=== PATIENT | male | born 1970 | race Caucasian/White ===

== ENCOUNTER 2021-06-02 14:12 | Inpatient (IN) | payer BC ==
[~2021-06-02] VITALS: Ht 182.9 cm; Wt 135.2 kg
[~2021-06-02 14:12] MED LIST: MICARDIS 40MG40 MG PO
[2021-06-02 15:19] LABS: BASO % 0.1 % (0.0-2.0); GRAN # 5.8 K/mm3 (1.4-6.5); GRAN % 87.3 % (42.2-75.2); HEMOGLOBIN 14.1 g/dl (13.5-18.0); LYMPH # 0.6 K/mm3 (1.2-3.4); LYMPH % 8.4 % (20.0-51.0); MEAN CELL VOLUME 81 fl (80.0-100.0); MEAN CORPUSCULAR HEMOGLOBIN 29 pg (27-31); MEAN CORPUSCULAR HGB CONC 35 g/dl (33.0-37.0); MEAN PLATELET VOLUME 9.6 fl (7.4-10.4); MONO # 0.2 K/mm3 (0.1-0.6); MONO % 3.3 % (1.7-9.3); PLATELET COUNT 148 K/mm3 (130-400); RED BLOOD COUNT 4.95 M/mm3 (4.20-5.60); REDCELL DISTRIBUTION WIDTH-CV 14.8 % (11.5-14.5)
[2021-06-02 15:36] LABS: ALBUMIN 3.2 gm/dL (3.5-5.0); BILIRUBIN,TOTAL 0.6 mg/dL (0.2-1.2); C-REACTIVE PROTEIN 15.79 mg/dL (0.00-0.50); CALCIUM 8.8 mg/dL (8.4-10.2); CREATININE, serum 0.87 mg/dL (0.72-1.25); POTASSIUM 4.6 mmol/L (3.5-4.5); TOTAL PROTEIN 7.2 gm/dL (6.2-8.1)
[2021-06-02 15:45] LABS: TROPONIN-I 0.019 ng/mL (0.00-0.033)
[2021-06-02 15:55] LABS: ARTERIAL BLD GAS O2 SATURATION 95.6 % (92-100); ARTERIAL BLD GAS TCO2 CT 19.5; ARTERIAL BLOOD GAS BASE EXCESS -5.3 (-2-2); ARTERIAL BLOOD GAS HCO3 18.6 meq/L (22-26); ARTERIAL BLOOD GAS PCO2 31.6 mmHg (35-45); ARTERIAL BLOOD GAS PO2 76.4 mmHg (80-100); ARTERIAL BLOOD GAS pH 7.39 (7.35-7.45)
[2021-06-02] MEDS ORDERED: ZESTRIL 20MG TA20 MG PO (17:58)
[2021-06-02] MEDS ORDERED: MULTI VITAMINS1 TAB PO (17:59)
[2021-06-02 19:43] VITALS: BP 143/87; PULSE 106; TEMP 98.4
[2021-06-03 00:24] VITALS: BP 133/83; PULSE 97; TEMP 97.6
[2021-06-03 03:39] VITALS: BP 135/88; PULSE 102; TEMP 97.4
[2021-06-03 07:33] LABS: BASO % 0.1 % (0.0-2.0); GRAN # 6.3 K/mm3 (1.4-6.5); GRAN % 86.9 % (42.2-75.2); HEMATOCRIT 40.8 % (42.0-52.0); HEMOGLOBIN 14.3 g/dl (13.5-18.0); LYMPH # 0.6 K/mm3 (1.2-3.4); LYMPH % 7.9 % (20.0-51.0); MEAN CELL VOLUME 82 fl (80.0-100.0); MEAN CORPUSCULAR HEMOGLOBIN 29 pg (27-31); MEAN CORPUSCULAR HGB CONC 35 g/dl (33.0-37.0); MEAN PLATELET VOLUME 9.8 fl (7.4-10.4); MONO # 0.3 K/mm3 (0.1-0.6); PLATELET COUNT 173 K/mm3 (130-400); RED BLOOD COUNT 4.99 M/mm3 (4.20-5.60); REDCELL DISTRIBUTION WIDTH-CV 14.9 % (11.5-14.5)
[2021-06-03 07:59] LABS: CREATININE, serum 0.78 mg/dL (0.72-1.25); POTASSIUM 4.8 mmol/L (3.5-4.5)
[2021-06-03 09:35] VITALS: BP 143/79; PULSE 102; TEMP 98
[2021-06-03 09:41] LABS: BILIRUBIN,DIRECT 0.3 mg/dL (0.0-0.5); BILIRUBIN,TOTAL 0.6 mg/dL (0.2-1.2)
[2021-06-03 11:26] VITALS: BP 137/77; PULSE 106; TEMP 97.5
[2021-06-03 16:55] VITALS: BP 140/86; PULSE 95; TEMP 97.7
[2021-06-03 20:43] VITALS: BP 139/84; PULSE 100; TEMP 98
[2021-06-04] VITALS (7 sets, daily range): BP systolic 114–171; BP diastolic 58–99; PULSE 80–105; TEMP 97.6–98.5
[2021-06-04 07:56] LABS: HEMATOCRIT 40.6 % (42.0-52.0); HEMOGLOBIN 14.3 g/dl (13.5-18.0); MEAN CELL VOLUME 82 fl (80.0-100.0); MEAN CORPUSCULAR HEMOGLOBIN 29 pg (27-31); MEAN CORPUSCULAR HGB CONC 35 g/dl (33.0-37.0); MEAN PLATELET VOLUME 9.8 fl (7.4-10.4); PLATELET COUNT 198 K/mm3 (130-400); RED BLOOD COUNT 4.98 M/mm3 (4.20-5.60); REDCELL DISTRIBUTION WIDTH-CV 14.7 % (11.5-14.5)
[2021-06-04 08:19] LABS: ALBUMIN 2.8 gm/dL (3.5-5.0); BILIRUBIN,DIRECT 0.3 mg/dL (0.0-0.5); BILIRUBIN,TOTAL 0.8 mg/dL (0.2-1.2); CREATININE, serum 0.83 mg/dL (0.72-1.25); POTASSIUM 4.9 mmol/L (3.5-4.5); TOTAL PROTEIN 6.7 gm/dL (6.2-8.1)
[2021-06-04 09:24] LABS: BAND 4 % (0-10); LYMPHOCYTE 12 % (20.0-51.0); NEUTROPHILS 83 % (42.0-75.2); PLATELET ESTIMATE NORMAL (NORMAL)
[2021-06-04 09:25] LABS: ANISOCYTOSIS 1+; MICROCYTOSIS 1+
[2021-06-05] VITALS (236 sets, daily range): BP systolic 130–157; BP diastolic 69–98; PULSE 86–99; TEMP 98.2–98.8; O2SAT 85–100
[2021-06-05 07:04] LABS: HEMOGLOBIN 14.5 g/dl (13.5-18.0); MEAN CELL VOLUME 81 fl (80.0-100.0); MEAN CORPUSCULAR HEMOGLOBIN 29 pg (27-31); MEAN CORPUSCULAR HGB CONC 35 g/dl (33.0-37.0); MEAN PLATELET VOLUME 9.5 fl (7.4-10.4); PLATELET COUNT 216 K/mm3 (130-400); RED BLOOD COUNT 5.07 M/mm3 (4.20-5.60); REDCELL DISTRIBUTION WIDTH-CV 14.5 % (11.5-14.5)
[2021-06-05 07:32] LABS: CALCIUM 8.9 mg/dL (8.4-10.2); CREATININE, serum 0.82 mg/dL (0.72-1.25); POTASSIUM 4.6 mmol/L (3.5-4.5)
[2021-06-05 08:44] LABS: BAND 4 % (0-10); LYMPHOCYTE 15 % (20.0-51.0); NEUTROPHILS 79 % (42.0-75.2); PLATELET ESTIMATE NORMAL (NORMAL)
[2021-06-05 13:34] LABS: ARTERIAL BLD GAS TCO2 CT 24.2; ARTERIAL BLOOD GAS BASE EXCESS -0.2 (-2-2); ARTERIAL BLOOD GAS HCO3 23.2 meq/L (22-26); ARTERIAL BLOOD GAS PCO2 34.4 mmHg (35-45); ARTERIAL BLOOD GAS PO2 69.6 mmHg (80-100); ARTERIAL BLOOD GAS pH 7.45 (7.35-7.45)
[2021-06-06] VITALS (687 sets, daily range): BP systolic 112–161; BP diastolic 73–102; PULSE 74–105; TEMP 97.5–99.2; O2SAT 72–100
[2021-06-06 04:29] LABS: ARTERIAL BLD GAS O2 SATURATION 96.1 % (92-100); ARTERIAL BLD GAS TCO2 CT 25.7; ARTERIAL BLOOD GAS BASE EXCESS -0.1 (-2-2); ARTERIAL BLOOD GAS HCO3 24.5 meq/L (22-26); ARTERIAL BLOOD GAS PCO2 39.8 mmHg (35-45); ARTERIAL BLOOD GAS pH 7.41 (7.35-7.45)
[2021-06-06 05:59] LABS: HEMATOCRIT 41.8 % (42.0-52.0); HEMOGLOBIN 14.9 g/dl (13.5-18.0); MEAN CELL VOLUME 81 fl (80.0-100.0); MEAN CORPUSCULAR HEMOGLOBIN 29 pg (27-31); MEAN CORPUSCULAR HGB CONC 36 g/dl (33.0-37.0); MEAN PLATELET VOLUME 9.3 fl (7.4-10.4); PLATELET COUNT 251 K/mm3 (130-400); RED BLOOD COUNT 5.16 M/mm3 (4.20-5.60); REDCELL DISTRIBUTION WIDTH-CV 14.6 % (11.5-14.5)
[2021-06-06 06:23] LABS: CALCIUM 8.9 mg/dL (8.4-10.2); CREATININE, serum 0.85 mg/dL (0.72-1.25); MAGNESIUM 1.9 mg/dL (1.6-2.6); POTASSIUM 4.5 mmol/L (3.5-4.5)
[2021-06-06 06:55] LABS: BAND 3 % (0-10); LYMPHOCYTE 9 % (20.0-51.0); METAMYELOCYTE 5 % (0-0); NEUTROPHILS 80 % (42.0-75.2); PLATELET ESTIMATE NORMAL (NORMAL)
[2021-06-07] VITALS (702 sets, daily range): BP systolic 134–152; BP diastolic 84–93; PULSE 79–98; TEMP 97.5–98.8; O2SAT 78–100
[2021-06-07 04:49] LABS: HEMATOCRIT 39.4 % (42.0-52.0); HEMOGLOBIN 13.2 g/dl (13.5-18.0); MEAN CELL VOLUME 85 fl (80.0-100.0); MEAN CORPUSCULAR HEMOGLOBIN 28 pg (27-31); MEAN CORPUSCULAR HGB CONC 34 g/dl (33.0-37.0); MEAN PLATELET VOLUME 9.4 fl (7.4-10.4); PLATELET COUNT 222 K/mm3 (130-400); RED BLOOD COUNT 4.64 M/mm3 (4.20-5.60); REDCELL DISTRIBUTION WIDTH-CV 14.6 % (11.5-14.5)
[2021-06-07 05:04] LABS: CALCIUM 8.1 mg/dL (8.4-10.2); CREATININE, serum 0.85 mg/dL (0.72-1.25); POTASSIUM 4.3 mmol/L (3.5-4.5)
[2021-06-07 06:54] LABS: EOSINOPHIL 5 % (0-4); LYMPHOCYTE 12 % (20.0-51.0); METAMYELOCYTE 8 % (0-0); NEUTROPHILS 70 % (42.0-75.2); PLATELET ESTIMATE NORMAL (NORMAL)
[2021-06-07 11:53] LABS: ALBUMIN 2.6 gm/dL (3.5-5.0); BILIRUBIN,DIRECT 0.3 mg/dL (0.0-0.5); BILIRUBIN,TOTAL 0.7 mg/dL (0.2-1.2)
[2021-06-07 14:43] LABS: ARTERIAL BLD GAS O2 SATURATION 93.4 % (92-100); ARTERIAL BLD GAS TCO2 CT 18.3; ARTERIAL BLOOD GAS BASE EXCESS -5.1 (-2-2); ARTERIAL BLOOD GAS HCO3 17.4 meq/L (22-26); ARTERIAL BLOOD GAS PCO2 26.7 mmHg (35-45); ARTERIAL BLOOD GAS pH 7.43 (7.35-7.45)
[2021-06-08] VITALS (402 sets, daily range): BP systolic 116–156; BP diastolic 57–93; PULSE 82–92; TEMP 97.5–98.5; O2SAT 80–100
[2021-06-08 04:34] LABS: ARTERIAL BLD GAS TCO2 CT 21.5; ARTERIAL BLOOD GAS BASE EXCESS -3.5 (-2-2); ARTERIAL BLOOD GAS HCO3 20.5 meq/L (22-26); ARTERIAL BLOOD GAS PCO2 34.3 mmHg (35-45); ARTERIAL BLOOD GAS PO2 87.8 mmHg (80-100); ARTERIAL BLOOD GAS pH 7.39 (7.35-7.45)
[2021-06-08 04:38] LABS: HEMATOCRIT 41.7 % (42.0-52.0); HEMOGLOBIN 14.8 g/dl (13.5-18.0); MEAN CELL VOLUME 81 fl (80.0-100.0); MEAN CORPUSCULAR HEMOGLOBIN 29 pg (27-31); MEAN CORPUSCULAR HGB CONC 36 g/dl (33.0-37.0); MEAN PLATELET VOLUME 9.8 fl (7.4-10.4); PLATELET COUNT 263 K/mm3 (130-400); RED BLOOD COUNT 5.15 M/mm3 (4.20-5.60); REDCELL DISTRIBUTION WIDTH-CV 14.4 % (11.5-14.5)
[2021-06-08 04:55] LABS: CALCIUM 8.9 mg/dL (8.4-10.2); CREATININE, serum 0.88 mg/dL (0.72-1.25); POTASSIUM 4.6 mmol/L (3.5-4.5)
[2021-06-08 05:28] LABS: BAND 3 % (0-10); EOSINOPHIL 4 % (0-4); LYMPHOCYTE 12 % (20.0-51.0); METAMYELOCYTE 1 % (0-0); NEUTROPHILS 75 % (42.0-75.2)
[2021-06-08 05:29] LABS: ANISOCYTOSIS 1+
[2021-06-09] VITALS: BP 133/94; PULSE 80; TEMP 98.7
[2021-06-09 04:00] VITALS: BP 130/89; PULSE 84; TEMP 97.9
[2021-06-09 05:08] LABS: ARTERIAL BLD GAS TCO2 CT 23.4; ARTERIAL BLOOD GAS BASE EXCESS -2.2 (-2-2); ARTERIAL BLOOD GAS HCO3 22.2 meq/L (22-26); ARTERIAL BLOOD GAS PCO2 37.2 mmHg (35-45); ARTERIAL BLOOD GAS PO2 56.7 mmHg (80-100); ARTERIAL BLOOD GAS pH 7.39 (7.35-7.45)
[2021-06-09 05:46] LABS: HEMATOCRIT 42.6 % (42.0-52.0); HEMOGLOBIN 15.1 g/dl (13.5-18.0); MEAN CELL VOLUME 81 fl (80.0-100.0); MEAN CORPUSCULAR HEMOGLOBIN 29 pg (27-31); MEAN CORPUSCULAR HGB CONC 35 g/dl (33.0-37.0); MEAN PLATELET VOLUME 10.1 fl (7.4-10.4); PLATELET COUNT 300 K/mm3 (130-400); RED BLOOD COUNT 5.24 M/mm3 (4.20-5.60); REDCELL DISTRIBUTION WIDTH-CV 14.6 % (11.5-14.5)
[2021-06-09 06:08] LABS: ALBUMIN 3.1 gm/dL (3.5-5.0); BILIRUBIN,TOTAL 0.8 mg/dL (0.2-1.2); C-REACTIVE PROTEIN 0.51 mg/dL (0.00-0.50); CREATININE, serum 0.91 mg/dL (0.72-1.25); POTASSIUM 4.4 mmol/L (3.5-4.5); TOTAL PROTEIN 6.8 gm/dL (6.2-8.1)
[2021-06-09 07:29] LABS: BAND 10 % (0-10); EOSINOPHIL 4 % (0-4); LYMPHOCYTE 16 % (20.0-51.0); METAMYELOCYTE 2 % (0-0); NEUTROPHILS 63 % (42.0-75.2); PLATELET ESTIMATE NORMAL (NORMAL); TEAR DROP CELLS 1+
[2021-06-09 08:00] VITALS: BP 129/83; PULSE 79; TEMP 96.5
[2021-06-09 11:30] VITALS: BP 133/102; PULSE 80; TEMP 97.6
[2021-06-09 16:41] VITALS: BP 126/77; PULSE 89; TEMP 97.6
[2021-06-09 20:34] VITALS: BP 108/73; PULSE 96; TEMP 98
[2021-06-10 00:28] VITALS: BP 117/81; PULSE 79; TEMP 98.3
[2021-06-10 03:46] VITALS: BP 129/71; PULSE 78; TEMP 98.3
[2021-06-10 08:16] VITALS: BP 105/63; PULSE 88; TEMP 97.9
[2021-06-10 11:34] VITALS: BP 121/77; PULSE 96; TEMP 97.8
[2021-06-10 15:53] VITALS: BP 121/71; PULSE 106; TEMP 98.7
[2021-06-10 20:31] VITALS: BP 149/88; PULSE 113; TEMP 98.2
[2021-06-11] VITALS (7 sets, daily range): BP systolic 121–138; BP diastolic 69–86; PULSE 74–101; TEMP 94.8–98.1
[2021-06-11 12:38] LABS: BASO % 0.5 % (0.0-2.0); EOS # 0.1 K/mm3 (0.0-0.7); EOS % 1.6 % (0.0-4.0); GRAN # 6.1 K/mm3 (1.4-6.5); GRAN % 77.1 % (42.2-75.2); HEMATOCRIT 40.8 % (42.0-52.0); HEMOGLOBIN 14.7 g/dl (13.5-18.0); LYMPH # 0.7 K/mm3 (1.2-3.4); LYMPH % 9.1 % (20.0-51.0); MEAN CELL VOLUME 81 fl (80.0-100.0); MEAN CORPUSCULAR HEMOGLOBIN 29 pg (27-31); MEAN CORPUSCULAR HGB CONC 36 g/dl (33.0-37.0); MONO # 0.5 K/mm3 (0.1-0.6); PLATELET COUNT 231 K/mm3 (130-400); RED BLOOD COUNT 5.04 M/mm3 (4.20-5.60); REDCELL DISTRIBUTION WIDTH-CV 14.5 % (11.5-14.5)
[2021-06-11 12:49] LABS: ALBUMIN 3.4 gm/dL (3.5-5.0); BILIRUBIN,TOTAL 0.7 mg/dL (0.2-1.2); C-REACTIVE PROTEIN 0.18 mg/dL (0.00-0.50); CALCIUM 8.9 mg/dL (8.4-10.2); CREATININE, serum 1.02 mg/dL (0.72-1.25); POTASSIUM 4.6 mmol/L (3.5-4.5); TOTAL PROTEIN 6.7 gm/dL (6.2-8.1)
[2021-06-12 04:27] VITALS: BP 116/67; PULSE 60; TEMP 98.2
[2021-06-12 07:44] VITALS: BP 121/76; PULSE 78; TEMP 97.5
[2021-06-12 11:49] VITALS: BP 96/64; PULSE 88; TEMP 98.3
[2021-06-12 16:11] VITALS: BP 115/66; PULSE 94; TEMP 98.2
[2021-06-12 20:51] VITALS: BP 127/69; PULSE 92; TEMP 98.1
[2021-06-12 23:56] VITALS: BP 128/76; PULSE 82; TEMP 98.1
[2021-06-13 04:23] VITALS: BP 127/73; PULSE 81; TEMP 98.2
[2021-06-13 07:12] LABS: HEMATOCRIT 37.7 % (42.0-52.0); HEMOGLOBIN 13.1 g/dl (13.5-18.0); MEAN CELL VOLUME 83 fl (80.0-100.0); MEAN CORPUSCULAR HEMOGLOBIN 29 pg (27-31); MEAN CORPUSCULAR HGB CONC 35 g/dl (33.0-37.0); MEAN PLATELET VOLUME 10.7 fl (7.4-10.4); PLATELET COUNT 209 K/mm3 (130-400); RED BLOOD COUNT 4.53 M/mm3 (4.20-5.60); REDCELL DISTRIBUTION WIDTH-CV 14.7 % (11.5-14.5)
[2021-06-13 07:32] LABS: C-REACTIVE PROTEIN 0.1 mg/dL (0.00-0.50); CALCIUM 8.7 mg/dL (8.4-10.2); CREATININE, serum 0.96 mg/dL (0.72-1.25); MAGNESIUM 1.8 mg/dL (1.6-2.6); POTASSIUM 4.4 mmol/L (3.5-4.5)
[2021-06-13 07:49] VITALS: BP 126/88; PULSE 78; TEMP 98.7
[2021-06-13 08:33] LABS: BAND 1 % (0-10); EOSINOPHIL 3 % (0-4); LYMPHOCYTE 16 % (20.0-51.0); NEUTROPHILS 75 % (42.0-75.2); PLATELET ESTIMATE NORMAL (NORMAL)
[2021-06-13 08:34] LABS: MICROCYTOSIS 1+
[2021-06-13 11:42] VITALS: BP 119/68; PULSE 97; TEMP 98
[2021-06-13 15:39] VITALS: BP 124/76; PULSE 90; TEMP 98
[2021-06-13 20:37] VITALS: BP 135/84; PULSE 90; TEMP 98.4
[2021-06-14 00:40] VITALS: BP 142/75; PULSE 78; TEMP 98.2
[2021-06-14 04:09] VITALS: BP 137/88; PULSE 70; TEMP 98
[2021-06-14 08:45] VITALS: BP 124/78; PULSE 91; TEMP 98.2
[2021-06-14 09:47] LABS: HEMATOCRIT 36.3 % (42.0-52.0); HEMOGLOBIN 12.2 g/dl (13.5-18.0); MEAN CELL VOLUME 88 fl (80.0-100.0); MEAN CORPUSCULAR HEMOGLOBIN 30 pg (27-31); MEAN CORPUSCULAR HGB CONC 34 g/dl (33.0-37.0); MEAN PLATELET VOLUME 11.5 fl (7.4-10.4); PLATELET COUNT 191 K/mm3 (130-400); RED BLOOD COUNT 4.14 M/mm3 (4.20-5.60); REDCELL DISTRIBUTION WIDTH-CV 12.4 % (11.5-14.5)
[2021-06-14 10:05] LABS: CALCIUM 9.6 mg/dL (8.4-10.2); CREATININE, serum 0.93 mg/dL (0.72-1.25); POTASSIUM 3.6 mmol/L (3.5-4.5)
[2021-06-14 11:04] LABS: BAND 5 % (0-10); LYMPHOCYTE 16 % (20.0-51.0); NEUTROPHILS 68 % (42.0-75.2); PLATELET ESTIMATE NORMAL (NORMAL)
[2021-06-14 12:09] VITALS: BP 124/79; PULSE 98; TEMP 98.3
[2021-06-14 17:32] VITALS: BP 138/73; PULSE 98; TEMP 97.7
[2021-06-14 20:43] VITALS: BP 134/81; PULSE 100; TEMP 97.9
[2021-06-15 00:02] VITALS: BP 139/85; PULSE 83; TEMP 97.7
[2021-06-15 04:03] VITALS: BP 141/80; PULSE 81; TEMP 97.9
[2021-06-15 06:49] LABS: HEMATOCRIT 39.7 % (42.0-52.0); HEMOGLOBIN 13.6 g/dl (13.5-18.0); MEAN CELL VOLUME 84 fl (80.0-100.0); MEAN CORPUSCULAR HEMOGLOBIN 29 pg (27-31); MEAN CORPUSCULAR HGB CONC 34 g/dl (33.0-37.0); MEAN PLATELET VOLUME 10.8 fl (7.4-10.4); PLATELET COUNT 221 K/mm3 (130-400); RED BLOOD COUNT 4.74 M/mm3 (4.20-5.60); REDCELL DISTRIBUTION WIDTH-CV 14.9 % (11.5-14.5)
[2021-06-15 06:50] LABS: C-REACTIVE PROTEIN 0.07 mg/dL (0.00-0.50); CALCIUM 9.3 mg/dL (8.4-10.2); CREATININE, serum 0.86 mg/dL (0.72-1.25); POTASSIUM 4.6 mmol/L (3.5-4.5)
[2021-06-15 07:37] VITALS: BP 128/91; PULSE 87; TEMP 98.5
[2021-06-15 08:09] LABS: BAND 7 % (0-10); LYMPHOCYTE 27 % (20.0-51.0); METAMYELOCYTE 2 % (0-0); NEUTROPHILS 60 % (42.0-75.2); PLATELET ESTIMATE NORMAL (NORMAL)
[2021-06-15 11:15] VITALS: BP 127/77; PULSE 97; TEMP 97.7
[2021-06-15 15:37] VITALS: BP 129/77; PULSE 103; TEMP 98.1
[2021-06-15 23:59] VITALS: BP 140/85; PULSE 95; TEMP 98.3
[2021-06-16 04:39] VITALS: BP 129/83; PULSE 89; TEMP 97.6
[2021-06-16 05:41] LABS: HEMATOCRIT 38.7 % (42.0-52.0); HEMOGLOBIN 13.5 g/dl (13.5-18.0); MEAN CELL VOLUME 85 fl (80.0-100.0); MEAN CORPUSCULAR HEMOGLOBIN 30 pg (27-31); MEAN CORPUSCULAR HGB CONC 35 g/dl (33.0-37.0); MEAN PLATELET VOLUME 10.2 fl (7.4-10.4); PLATELET COUNT 195 K/mm3 (130-400); RED BLOOD COUNT 4.57 M/mm3 (4.20-5.60)
[2021-06-16 05:58] LABS: ALBUMIN 3.3 gm/dL (3.5-5.0); BILIRUBIN,TOTAL 0.2 mg/dL (0.2-1.2); CALCIUM 9.3 mg/dL (8.4-10.2); CREATININE, serum 0.82 mg/dL (0.72-1.25); POTASSIUM 4.5 mmol/L (3.5-4.5); TOTAL PROTEIN 6.2 gm/dL (6.2-8.1)
[2021-06-16 07:26] LABS: ANISOCYTOSIS 1+; BAND 5 % (0-10); EOSINOPHIL 1 % (0-4); LYMPHOCYTE 30 % (20.0-51.0); METAMYELOCYTE 3 % (0-0); MYELOCYTE 1 % (0-0); NEUTROPHILS 56 % (42.0-75.2); PLATELET ESTIMATE NORMAL (NORMAL)
[2021-06-16 07:50] VITALS: BP 120/86; PULSE 90; TEMP 98.5
[2021-06-16] MEDS ORDERED: PROVENTIL0.09 MG/A1 IH (11:37)
[2021-06-16 11:46] VITALS: BP 118/82; PULSE 109; TEMP 97.9
== END 2021-06-16 17:17 | disposition home or self-care (01) | DRG 177 ==
LOC: COL.ER 14:12 → ICU 15:44 → MEDICAL 15:44 → ICU 06-05 15:28 → MEDICAL 06-09 13:08
PROVIDERS: Internal Medicine; Internal Medicine Pulmonary Disease; Internal Medicine Sleep Medicine; Nurse Practitioner; Physician Assistant; ADMIT Student in an Organized Health Care Education/Training Program
PROC: XW033E5 Introduction of Remdesivir Anti-infective into Peripheral Vein, Percutaneous Approach, New Technology Group 5 (ICD-10-PCS; 2021-06-04)
PROC: 02HV33Z Insertion of Infusion Device into Superior Vena Cava, Percutaneous Approach (ICD-10-PCS; principal; 2021-06-06)
PROC: 5A09457 Assistance with Respiratory Ventilation, 24-96 Consecutive Hours, Continuous Positive Airway Pressure (ICD-10-PCS; 2021-06-06)
DX: U07.1 COVID-19 (principal); J96.01 Acute respiratory failure with hypoxia; J12.82 Pneumonia due to coronavirus disease 2019; Z68.41 Body mass index [BMI] 40.0-44.9, adult; I10 Essential (primary) hypertension; E66.01 Morbid (severe) obesity due to excess calories; E87.5 Hyperkalemia; R74.01 Elevation of levels of liver transaminase levels; E87.6 Hypokalemia; Z73.0 Burn-out
CPT/HCPCS: 99223-AI; 99233-AI; 99239; A9284; C1751; C1892; J0696; J1100; J1650; J1815; J2060; J7030; J7050; Q0249; Q9967